=== PATIENT | male | born 1995 | race Caucasian/White ===

== ENCOUNTER 2019-08-01 16:56 | Inpatient (IN) ==
[2019-08-01 17:33] LABS: Appearance Urine Clear (Clear); Bilirubin Urine Negative (Negative); Blood Urine Negative (Negative); Color Urine Yellow; Glucose Urine UA Negative (Negative); Ketones Urine Negative (Negative); Leukocyte Esterase Urine Negative (Negative); Nitrite Urine Negative (Negative); Protein Urine Negative (Negative); Specific Gravity Urine 1.028 (1.000-1.030); Urobilinogen Urine Negative (Negative); pH Urine 5.5 (4.5-7.5)
[2019-08-01 17:36] LABS: Basophils # (auto) 0.02 K/uL (0-0.2); Basophils % (auto) 0.3 %; Eosinophils # (auto) 0.08 K/uL (0-0.5); Eosinophils % (auto) 1.4 %; Hematocrit (blood only) 44.3 % (42-52); Hemoglobin 15.1 g/dL (14.0-18.0); Immature Granulocytes # (auto) 0.02 K/uL (0.00-0.02); Immature Granulocytes % (auto) 0.3 %; Lymphocytes # (auto) 2.09 K/uL (1.2-3.4); Lymphocytes % (auto) 35.3 %; Mean Corpuscular Hemoglobin 29.2 pg (25-34); Mean Corpuscular Hgb Conc 34.1 g/dL (32-36); Mean Corpuscular Volume 85.7 fL (80-100); Mean Platelet Volume 10.6 fL (7.4-10.4); Monocytes % (auto) 6.8 %; Neutrophils # (auto) 3.31 K/uL (1.4-6.5); Neutrophils % (auto) 55.9 %; Platelet Count 335 K/uL (130-400); RDW Coefficient of Variation 13.8 % (11.5-14.5); Red Blood Count 5.17 M/uL (4.7-6.1); White Blood Count 5.92 K/uL (4.8-10.8)
[2019-08-01 17:55] LABS: Amphetamines+Metham, Urine Neg (Neg); Barbiturates, Urine Neg (Neg); Benzodiazepine, Urine Neg (Neg); Cocaine, Urine Neg (Neg); MDMA (Ecstacy), Urine Neg (Neg); Methadone, Urine Neg (Neg); Opiate, Urine Neg (Neg); Phencyclidine, Urine Neg (Neg)
[2019-08-01 18:02] LABS: Albumin Globulin Ratio 1.2 (0.9-2); Albumin Level 4.5 gm/dl (3.4-5.0); BUN Creatinine Ratio 10.4 (10-20); Bilirubin,Total 0.7 mg/dl (0.2-1); Calcium 9.5 mg/dl (8.5-10.1); Creatinine Clr Calc Pharmacy 111.4 ml/min; Est GFR (African American) 88.1; Globulin 3.7 gm/dl (2.5-4.0); Potassium 3.8 mmol/L (3.5-5.1); Total Protein 8.2 gm/dl (6.4-8.2)
[2019-08-01 18:05] LABS: Acetaminophen < 2 ug/ml (10-30)
[2019-08-01 18:06] LABS: Salicylate < 1.7 mg/dl (2.8-20)
[2019-08-01 18:10] LABS: Thyroid Stimulating Hormone 1.39 uIu/ml (0.300-4.500)
--- NOTE | 2019-08-01 18:27 | Emergency Department Note ---
Entered by Arelis Olmos acting as a scribe for History of Present Illness General Chief complaint: Mental Health Evaluation Stated complaint: DEPRESSION Time Seen by Provider: 08/01/19 17:09 Source: patient Mode of arrival: other (police) Limitations: no limitations History of Present Illness Provider complaint: Depression Onset (ago): week(s) (a few weeks ago) Location: head Radiation: non-radiation Severity: similar to prior episodes Pain Consistency: + other (worsening) Quality: + other (depression) Associated symptoms: + other (Additional symptoms: suicidal ideations, excessive sleep. Denies: abdominal pain); no loss of appetite Treatments prior to arrival: none The patient is a 24 year old white male w/ PMHx depression who presents to the ED w/ CC of worsening depression beginning a few weeks ago. The patient reports that he is a college senior preparing to graduate in the spring. He explains al t he went to therapy during his alis year and pushed through his depression, but he notes that he his depression has worsened since June of this year. He states that his depression has become a daily problem. He adds that his grades have been dropping and that he has been sleeping more. He denies any abdominal pain and loss of appetite. He indicates that he has a plan to shoot himself but currently does not have access to any weapons. He told the case management manager, however, that he plans to go home to [place] next week and has access to guns there. The patient reports that he has tried to hurt himself by cutting his hip as a high school sophomore, but he states that he has not tried cutting himself since. He notes that he is not on any regular medication. He endorses alcohol consumption and marijuana use, but he denies any tobacco use. He recalls that he last smoked marijuana yesterday. Home Medications Home Medications Medication Instructions Recorded Confirmed Type No Known Home Medications 08/01/19 08/01/19 History Allergies Allergy/AdvReac Type Severity Reaction Status Date / Time No Known Allergies Allergy Verified 08/01/19 18:20 Past Med/Surg History Medical History Depression Social History Preferred Language: Belgian current occupational status: student Feels Safe at Home: Yes Smoking Status: Never smoker Hx Alcohol Use: Yes Hx Substance Use: Yes substance use type: marijuana Review of Systems See HPI for pertinent positives & negatives. and A total of 10 systems reviewed and were otherwise negative Physical Exam Vital Signs Vital Signs - 24 hr 08/01/19 17:07 Temperature 36.7 C Temperature Source Oral Pulse Rate 65 Pulse Rhythm Regular Pulse Strength Normal Respiratory Rate 18 Respiratory Effort / Characteristics Non-Labored Spontaneous Respiratory Depth Normal Respiratory Pattern Regular Blood Pressure 129/79 Blood Pressure Mean 95 Blood Pressure Position Sitting Pulse Oximetry 97 Oxygen Delivery Method Room Air Sepsis Action Taken by Nursing No Action Required GENERAL: Well appearing, well nourished, NAD, non-toxic. EYE EXAM: Normal conjunctiva. PERRL, no anisocoria and EOM's grossly intact w/o pain. OROPHARYNX: Moist mucous membranes. Grossly normal dentition. NECK: Supple, no nuchal rigidity, no adenopathy, non-tender. No signs of meningismus. LUNGS: Clear to auscultation. Normal chest wall mechanics. HEART: NSR, no MRG. ABDOMEN: Abdomen soft, non-tender, normo-active bowel sounds, no masses, no rebound or guarding. BACK: No CVA TTP. SKIN: No rashes and no bruising. UPPER EXTREMITIES: Upper extremities are grossly normal. LOWER EXTREMITIES: No pitting edema. No calf pain. NEURO EXAM: A&O x3, cranial nerves II-XII grossly intact, normal speech, moves all 4 extremities on command w/o issue. PSYCH: Depressed mood, positive SI with plan. No AVH. Course Course 1737: The patient was evaluated in room A5, and a complete history and physical examination were performed. 1826: On reevaluation, the patient is resting. He is agreeable to inpatient rehab. The patient will be admitted to [address] [place] [address] for further evaluation. Medical Decision Making Differential Diagnosis Differential diagnosis: Etiologies such as mood disorder, infection, hypoglycemia, electrolyte abnormalities, cardiac sources, intracerebral event, toxicologic, neurologic, as well as others were entertained. Medical Records Attestation: I reviewed the patient's medical records. Home Medications Current Medication List: was personally reviewed by me Laboratory Data Attestation: I reviewed the patient's lab results. Result diagrams: 08/01/19 17:20 08/01/19 17:20 Lab Results 11/08/01/19 08/01/19 Range/Units 17:13 17:13 17:20 WBC 5.92 (4.8-10.8) K/uL RBC 5.17 (4.7-6.1) M/uL Hgb 15.1 (14.0-18.0) g/dL Hct 44.3 (42-52) % MCV 85.7 (80-100) fL MCH 29.2 (25-34) pg MCHC 34.1 (32-36) g/dL RDW Std Deviation 43.0 (36.4-46.3) fL RDW Coeff of Nazario 13.8 (11.5-14.5) % Plt Count 335 (130-400) K/uL MPV 10.6 H (7.4-10.4) fL Immature Gran % (Auto) 0.3 % Neut % (Auto) 55.9 % Lymph % (Auto) 35.3 % [place] % (Auto) 6.8 % Eos % (Auto) 1.4 % Baso % (Auto) 0.3 % Immature Gran # (Auto) 0.02 (0.00-0.02) K/uL Neut # (Auto) 3.31 (1.4-6.5) K/uL Lymph # (Auto) 2.09 (1.2-3.4) K/uL [place] # (Auto) 0.40 (0.11-0.59) K/uL Eos # (Auto) 0.08 (0-0.5) K/uL Baso # (Auto) 0.02 (0-0.2) K/uL Sodium (136-145) mmol/L Potassium (3.5-5.1) mmol/L Chloride (98-107) mmol/L Carbon Dioxide (21-32) mmol/L Anion Gap (3-11) BUN (7-18) mg/dl Creatinine (0.6-1.4) mg/dl Est Cr Clr Drug Dosing ml/min Est GFR ( Amer) Est GFR (Non-Af Amer) BUN/Creatinine Ratio (10-20) Glucose (70-99) mg/dl Calcium (8.5-10.1) mg/dl Total Bilirubin (0.2-1) mg/dl AST (15-37) U/L ALT (12-78) U/L Alkaline Phosphatase (45-117) U/L Total Protein (6.4-8.2) gm/dl Albumin (3.4-5.0) gm/dl Globulin (2.5-4.0) gm/dl Albumin/Globulin Ratio (0.9-2) TSH (0.300-4.500) uIu/ml Urine Color Yellow Urine Appearance Clear (Clear) Urine pH 5.5 (4.5-7.5) Ur Specific [place] 1.028 (1.000-1.030) Urine Protein Negative (Negative) Urine Glucose (UA) Negative (Negative) Urine Ketones Negative (Negative) Urine Blood Negative (Negative) Urine Nitrite Negative (Negative) Urine Bilirubin Negative (Negative) Urine Urobilinogen Negative (Negative) Ur Leukocyte Esterase Negative (Negative) Salicylates (2.8-20) mg/dl Urine Opiates Screen Neg (Neg) Ur Methadone, Qual Neg (Neg) Acetaminophen (10-30) ug/ml Urine Barbiturates Neg (Neg) Ur Phencyclidine (PCP) Neg (Neg) U Amphetamin/Meth Scrn Neg (Neg) MDMA (Ecstasy) Screen Neg (Neg) U Benzodiazepines Scrn Neg (Neg) Ur Cocaine Metabolite Neg (Neg) U Marijuana (THC) Screen Pos H (Neg) Ethyl Alcohol mg/dL (0-3) mg/dl 08/01/19 08/01/19 08/01/19 Range/Units 17:20 17:20 17:20 WBC (4.8-10.8) K/uL RBC (4.7-6.1) M/uL Hgb (14.0-18.0) g/dL Hct (42-52) % MCV (80-100) fL MCH (25-34) pg MCHC (32-36) g/dL RDW Std Deviation (36.4-46.3) fL RDW Coeff of Nazario (11.5-14.5) % Plt Count (130-400) K/uL MPV (7.4-10.4) fL Immature Gran % (Auto) % Neut % (Auto) % Lymph % (Auto) % [place] % (Auto) % Eos % (Auto) % Baso % (Auto) % Immature Gran # (Auto) (0.00-0.02) K/uL Neut # (Auto) (1.4-6.5) K/uL Lymph # (Auto) (1.2-3.4) K/uL [place] # (Auto) (0.11-0.59) K/uL Eos # (Auto) (0-0.5) K/uL Baso # (Auto) (0-0.2) K/uL Sodium 141 (136-145) mmol/L Potassium 3.8 (3.5-5.1) mmol/L Chloride 108 H (98-107) mmol/L Carbon Dioxide 25 (21-32) mmol/L Anion Gap 8.0 (3-11) BUN 14 (7-18) mg/dl Creatinine 1.32 (0.6-1.4) mg/dl Est Cr Clr Drug Dosing 111.4 ml/min Est GFR ( Amer) 88.1 Est GFR (Non-Af Amer) 76.0 BUN/Creatinine Ratio 10.4 (10-20) Glucose 96 (70-99) mg/dl Calcium 9.5 (8.5-10.1) mg/dl Total Bilirubin 0.7 (0.2-1) mg/dl AST 33 (15-37) U/L ALT 42 (12-78) U/L Alkaline Phosphatase 76 (45-117) U/L Total Protein 8.2 (6.4-8.2) gm/dl Albumin 4.5 (3.4-5.0) gm/dl Globulin 3.7 (2.5-4.0) gm/dl Albumin/Globulin Ratio 1.2 (0.9-2) TSH 1.390 (0.300-4.500) uIu/ml Urine Color Urine Appearance (Clear) Urine pH (4.5-7.5) Ur Specific [place] (1.000-1.030) Urine Protein (Negative) Urine Glucose (UA) (Negative) Urine Ketones (Negative) Urine Blood (Negative) Urine Nitrite (Negative) Urine Bilirubin (Negative) Urine Urobilinogen (Negative) Ur Leukocyte Esterase (Negative) Salicylates < 1.7 L (2.8-20) mg/dl Urine Opiates Screen (Neg) Ur Methadone, Qual (Neg) Acetaminophen < 2 L (10-30) ug/ml Urine Barbiturates (Neg) Ur Phencyclidine (PCP) (Neg) U Amphetamin/Meth Scrn (Neg) MDMA (Ecstasy) Screen (Neg) U Benzodiazepines Scrn (Neg) Ur Cocaine Metabolite (Neg) U Marijuana (THC) Screen (Neg) Ethyl Alcohol mg/dL < 3.0 (0-3) mg/dl Blood Pressure Blood Pressure Findings: Elevated blood pressure Blood Pressure Disposition: further management by hospitalist MDM Narrative The patient is a 24 year old white male w/ PMHx depression who presents to the ED w/ CC of worsening depression beginning a few weeks ago. Patient was seen and evaluated bedside. The patient was complains of persistent worsening depressed thoughts including suicidal ideation plan with plan to shoot himself when he returned to his home state of [place]. The patient states that this is gotten worse ever since he found out that he was unable to secure a job when graduating. Patient was agreeable to inpatient treatment. The patient was medically cleared seen and evaluated by psych case management manager and admitted to 3 S. Impression & Plan Depression, Suicidal ideation, Marijuana use Discharge Plan Visit Data *Final* Discharge Date/Time: 08/01/19 19:08 Chief Complaint: Mental Health Evaluation Stated Complaint: DEPRESSION ED Provider: Aníbal Coates Discharge Problem: Depression, Suicidal ideation, Marijuana use Patient Disposition: Admitted As Inpatient Discharge Instructions Interventions: ED Discharge Assessment Last Done: 08/01/19 19:08 Discharge Problem: Depression Qualifiers: Depression Type: unspecified Qualified Code(s): F32.9 - Major depressive disorder, single episode, unspecified The scribe's documentation has been prepared under my direction and personally reviewed by me in its entirety. I confirm that the note above accurately reflects all work, treatment, procedures, and medical decision making performed by me.
[2019-08-01] MEDS ORDERED: MAGNESIUM HYDROXIDE SUSP 30 ML UDC PO PRN (18:40)
[2019-08-01] MEDS ORDERED: BISMUTH SUBSALICYLATE PER ML OMNICELL CHARGE PO PRN (18:40)
[2019-08-01] MEDS ORDERED: ALUMINUM/MAGNESIUM SUSP 30 ML UDC PO PRN (18:40)
[2019-08-01] MEDS ORDERED: ACETAMINOPHEN 325 MG TAB PO PRN (18:40)
[2019-08-01] MEDS ORDERED: SODIUM CHLORIDE 0.65% NA SOLN 45 ML (OCEAN) PRN (18:40)
[2019-08-02] MEDS: BuPROPion XL 150 MG TABCR PO SCH (13:20)
--- NOTE | 2019-08-02 16:40 | History & Physical ---
Date of Service August 02, 2019 Impression / Recommendations Impression 24 yr old with symptoms consistent with MDD with prior depressive symptoms while in high school that was treated with therapy appts back then. past moth has been with worsening depression after did not get job that was expecting and interpersonal struggles with gf and another peer seeming tied to his depressive symptoms and to his alcohol usage take increasing. was starting to project out by rejected by others as well. was planning suicide attempt by shooting self when goes home to [place] as family has guns. [facility] assessment day of admission referred him to ER to get admitted 08/02 - admitted to [address] [place] [address] on 201 vol admission individual and group inpt therapy social work assessment aftercare referrals for individual psychotherapy and psychiatric medication management family meeting, pt open to phone meeting with parents and also meeting with gf q15 minute safety checks for SI milieu therapy Inventory Assets Strengths: insightful, seeking help, making changes to housing to assist in how doing Needs: pulling away from alcohol as a self medicating attempt, psychotherapy and medication management services Risk Factors Assessment Male: Yes : Yes Do You Have Access To A Gun?: Yes (at parents home in [place] although combination lock now changed to prevent) Health Problems: No Mental Health Diagnoses: Yes Previous Attempt: No Previous Psychiatric Hospitalization: No Protective Factors Assessment Employed: No Psychiatric History Identifying Data RALEIGH CUEVAS is a 24-year-old M who currently lives in [place], in a fraternity on campus, has a history of depressive symptoms that has been worsening along and was admitted on 08/01/19 18:37 on a 201 voluntary commitment for SI concerns Chief Complaint "since not getting the job offer I been struggling". History of Present Illness This is [place]'s ([facility]) first psychiatric admission. He was referred to the emergency room after being assessed by caps at [facility] due to his suicidal concerns he had set up Fridays's assessment on Sunday, 28 July after disclosing his depressive concerns with a pair. 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 He was counting on this as his upcoming first job For after he graduates college in January 2020. He shared that this sense of rejection was really hard for him and also not knowing what would come next and feeling way behind in his job search process since he was counting on this to work out as leading him to be quite stressed And depressed. Additionally over the past month or so his drink of alcohol has increased significantly in intensity with him blacking out quite frequently over the past month as he drinks on Fridays and Saturdays. He also shared how in his some of his blackouts he has been emotionally cruel to his girlfriend without him being able to recall details of what he has said and done. He indicated that he thinks he was likely similarly interpersonally appropriate inappropriate with a male peer who recently indicated for him to stay away from him and patient cannot recall what he might have done. Patient indicated that he would sometimes drink on the heavy side in the past but that it would be only sporadically to rarely that he would have a blackout and it would be a much milder process without being told about inappropriate behaviors afterwards. Patient shared how he had used cannabis about weekly in the past but that he had ceased using during the summer break and during the first months of this current semester however he resumed using it in the past month as he was struggling and his depression and anxiety symptoms. He denied any other substance usage nor any misues of medications in his history. He shared how he was planning to move out of the dorm into separate housing for next semester given the extent of alcohol and drug use and the fraternity and his experience of feeling isolated instead of having emotional support while living in the fraternity. He shared how during the past month he has been struggling with motivation interest and engagement and has been struggling in his [employer] functioning. Patient at first had reported that he was doing rather decently prior to the past month but given aspects of the assessment it is also possible milder versions of the symptoms were present prior to a month ago. Patient denies history of hypomanic symptoms or psychotic features he denied's history of OCD or panic disorder. He denies having significant history of anxiety symptoms although until feeling more anxious during the past month as his depressive symptoms have worsened. He reported during the past week or 2 that he started to feel a sense of hopelessness and worthlessness and feeling that others were viewing him negatively and not wanting him around. He was having suicidal ideation with plan to shoot himself with having access to a gun at his parent's house back in [place] in which he was then be going back to for giving break in a week and saw himself as likely to try and kill himself during that break. Of note parents have been made aware of his psychiatric admission and and they have changed the combination code to the gun safe. Patient has prior history of obtaining psychotherapy appointments as a alis in high school which she felt was quite helpful for him. He endorsed history of self-injurious behavior by self cutting about 5 separate times when he was in 10th grade. He denies any history of suicide attempts. He denied having history of physically aggressive behavior or homicidal ideation. He denied any psychotic features. Past Psychiatric History Current Psychiatric Diagnosis: MDD Do You Have Access To A Gun?: Yes (at parents home in [place] although combination lock now changed to prevent) Describe Attempts in the Past: Ideations, no attempts Allergies Allergy/AdvReac Type Severity Reaction Status Date / Time No Known Allergies Allergy Verified 08/01/19 18:20 Home Medications Home Medications Medication Instructions Recorded Confirmed Type No Known Home Medications 08/01/19 08/01/19 History bupropion HCl 150 mg PO QAM #30 tab 08/04/19 Rx Family History Family History of: None Alcohol History Hx of Alcohol Use Over the Past 12 Months: Yes (socially,beer/liquor,weekly,8-10 drinks) AUDIT Total Score: 16 Smoking Use Have You Smoked or Used Tobacco Products in the Last 30 Days: No Smoking Status: Never smoker Substance History Hx of Prescription Med Misuse Over the Past 12 Months: No Hx of Over the Counter Med Misuse Over the Past 12 Months: No Hx of Inhalent Misuse Over the Past 12 Months: No Hx of Organic Substance Use Over the Past 12 Months: Yes (marijuana, yesterday, 6 months ago was last use) Hx of Illegal Substances/Street Drug Use Over Past 12 Months: No Problems as a Result of Past Substance Use: None Identified Personal History Living Arrangements: Home Living Arrangements Comments: Lives in a fraternity house locally and is originally from [place] Highest Grade Completed: Some College Highest Grade Completed Comment: [employer] Senior - Engineering Marital Status: Single Number Of Children: 0 Beliefs That Will Affect Care: None Patient History Medical History (Updated 08/04/19 @ 10:47 by Mounika Gaytan MD) Depression (Acute) Substance abuse Social History Preferred Language: Swedish Communication Ability: Effective Beliefs That Will Affect Care: None current occupational status: student Feels Safe at Home: Yes Smoking Status: Never smoker Hx Alcohol Use: Yes Hx Substance Use: Yes substance use type: marijuana Review of Systems Review of Systems: All systems reviewed & are unremarkable except as noted in HPI & below phsyical exam done in ER reviewed and considered adequate for purpose of this admission Physical Exam Psychiatric: Orientation: alert and oriented x 3 Apperance: appropriately dressed and appropriately groomed Eye Contact: good eye contact Motor Behavior: steady gait and station and no abnormal motor movements Speech: normal rate/rhythm/volume of speech Affect: + depressed affect Mood: + depressed mood Thought Process: goal directed thought process and linear/logical thought process Thought Content: + cognitive distortions and + worthlessness Suicidal Thoughts: denies suicidal plan and denies suicidal intent; + reports suicidal thoughts Homicidal Thoughts: denies homicidal thoughts Estimated Intelligence: + above average estimated intelligence Insight: + fair insight Judgement: + fair judgement Vital Signs (Past 24 Hours): Last Vital Signs Temp 36.5 C 08/02/19 06:00 Pulse 93 H 08/02/19 06:46 Resp 18 08/02/19 06:00 BP 119/62 08/02/19 06:46 Pulse Ox 99 08/01/19 19:30 Results & Data Laboratory Results Laboratory Results - last 24 hr 08/01/19 08/01/19 08/01/19 17:13 17:13 17:13 WBC RBC Hgb Hct MCV MCH MCHC RDW Std Deviation RDW Coeff of Nazario Plt Count MPV Immature Gran % (Auto) Neut % (Auto) Lymph % (Auto) [place] % (Auto) Eos % (Auto) Baso % (Auto) Immature Gran # (Auto) Neut # (Auto) Lymph # (Auto) [place] # (Auto) Eos # (Auto) Baso # (Auto) Sodium Potassium Chloride Carbon Dioxide Anion Gap BUN Creatinine Est Cr Clr Drug Dosing Est GFR ( Amer) Est GFR (Non-Af Amer) BUN/Creatinine Ratio Glucose Calcium Total Bilirubin AST ALT Alkaline Phosphatase Total Protein Albumin Globulin Albumin/Globulin Ratio TSH Urine Color Yellow Urine Appearance Clear Urine pH 5.5 Ur Specific [place] 1.028 Urine Protein Negative Urine Glucose (UA) Negative Urine Ketones Negative Urine Blood Negative Urine Nitrite Negative Urine Bilirubin Negative Urine Urobilinogen Negative Ur Leukocyte Esterase Negative Salicylates Urine Opiates Screen Neg Ur Methadone, Qual Neg Acetaminophen Urine Barbiturates Neg Ur Phencyclidine (PCP) Neg U Amphetamin/Meth Scrn Neg MDMA (Ecstasy) Screen Neg U Benzodiazepines Scrn Neg Ur Cocaine Metabolite Neg U Marijuana (THC) Screen Pos H U Marijuana THC Carboxy Pending Ethyl Alcohol mg/dL 08/01/19 08/01/19 08/01/19 17:20 17:20 17:20 WBC 5.92 RBC 5.17 Hgb 15.1 Hct 44.3 MCV 85.7 MCH 29.2 MCHC 34.1 RDW Std Deviation 43.0 RDW Coeff of Nazario 13.8 Plt Count 335 MPV 10.6 H Immature Gran % (Auto) 0.3 Neut % (Auto) 55.9 Lymph % (Auto) 35.3 [place] % (Auto) 6.8 Eos % (Auto) 1.4 Baso % (Auto) 0.3 Immature Gran # (Auto) 0.02 Neut # (Auto) 3.31 Lymph # (Auto) 2.09 [place] # (Auto) 0.40 Eos # (Auto) 0.08 Baso # (Auto) 0.02 Sodium 141 Potassium 3.8 Chloride 108 H Carbon Dioxide 25 Anion Gap 8.0 BUN 14 Creatinine 1.32 Est Cr Clr Drug Dosing 111.4 Est GFR ( Amer) 88.1 Est GFR (Non-Af Amer) 76.0 BUN/Creatinine Ratio 10.4 Glucose 96 Calcium 9.5 Total Bilirubin 0.7 AST 33 ALT 42 Alkaline Phosphatase 76 Total Protein 8.2 Albumin 4.5 Globulin 3.7 Albumin/Globulin Ratio 1.2 TSH 1.390 Urine Color Urine Appearance Urine pH Ur Specific [place] Urine Protein Urine Glucose (UA) Urine Ketones Urine Blood Urine Nitrite Urine Bilirubin Urine Urobilinogen Ur Leukocyte Esterase Salicylates < 1.7 L Urine Opiates Screen Ur Methadone, Qual Acetaminophen < 2 L Urine Barbiturates Ur Phencyclidine (PCP) U Amphetamin/Meth Scrn MDMA (Ecstasy) Screen U Benzodiazepines Scrn Ur Cocaine Metabolite U Marijuana (THC) Screen U Marijuana THC Carboxy Ethyl Alcohol mg/dL 08/01/19 17:20 WBC RBC Hgb Hct MCV MCH MCHC RDW Std Deviation RDW Coeff of Nazario Plt Count MPV Immature Gran % (Auto) Neut % (Auto) Lymph % (Auto) [place] % (Auto) Eos % (Auto) Baso % (Auto) Immature Gran # (Auto) Neut # (Auto) Lymph # (Auto) [place] # (Auto) Eos # (Auto) Baso # (Auto) Sodium Potassium Chloride Carbon Dioxide Anion Gap BUN Creatinine Est Cr Clr Drug Dosing Est GFR ( Amer) Est GFR (Non-Af Amer) BUN/Creatinine Ratio Glucose Calcium Total Bilirubin AST ALT Alkaline Phosphatase Total Protein Albumin Globulin Albumin/Globulin Ratio TSH Urine Color Urine Appearance Urine pH Ur Specific [place] Urine Protein Urine Glucose (UA) Urine Ketones Urine Blood Urine Nitrite Urine Bilirubin Urine Urobilinogen Ur Leukocyte Esterase Salicylates Urine Opiates Screen Ur Methadone, Qual Acetaminophen Urine Barbiturates Ur Phencyclidine (PCP) U Amphetamin/Meth Scrn MDMA (Ecstasy) Screen U Benzodiazepines Scrn Ur Cocaine Metabolite U Marijuana (THC) Screen U Marijuana THC Carboxy Ethyl Alcohol mg/dL < 3.0 Current Inpatient Medications Current Inpatient Medications: Current Inpatient Medications Acetaminophen (Tylenol) 650 mg PO Q4H PRN PRN Reason: Headache or Minor Fever Stop: 08/31/19 18:39 Al Hydrox/Mg Hydrox/Simethicone (Maalox) 30 ml PO Q4H PRN PRN Reason: GI Upset Stop: 08/31/19 18:39 Bismuth Subsalicylate (Kaopectate) 15 ml PO PRN PRN PRN Reason: Loose Stool Stop: 08/31/19 18:39 Bupropion HCl (Wellbutrin-Xl) 150 mg PO QAM CLAUDY Stop: 09/01/19 12:29 Last Admin: 08/02/19 13:20 Dose: 150 mg Documented by: Hydroxyzine HCl (Vistaril) 50 mg PO HSZ PRN PRN Reason: Insomnia Stop: 08/31/19 18:39 Hydroxyzine HCl (Vistaril) 25 mg PO Q4H PRN PRN Reason: Anxiety Stop: 08/31/19 18:39 Magnesium Hydroxide (Milk Of Magnesia) 30 ml PO DAILY PRN PRN Reason: Constipation Stop: 08/31/19 18:39 Sodium Chloride ([place] Nasal) 1 - 2 sprays NA PRN PRN PRN Reason: Nasal Dryness/Congestion Stop: 08/31/19 18:39
[2019-08-03] MEDS: BuPROPion XL 150 MG TABCR PO SCH (09:05)
--- NOTE | 2019-08-03 17:04 | Psychiatric Progress Note ---
Date of Service August 03, 2019 Impression / Recommendations Impression 08/02 - admitted to [address] [place] [id number] on 201 vol admission individual and group inpt therapy social work assessment aftercare referrals for individual psychotherapy and psychiatric medication management family meeting, pt open to phone meeting with parents and also meeting with gf q15 minute safety checks for SI milieu therapy 08/03 family meeting occurred, gf visited aftercare for alcohol plus mental health outpt therapy referral being placed tomorrow with pt highly interested continue wellbutrin xl unchangeed Inventory Assets Strengths: insightful, seeking help, making changes to housing to assist in how doing Needs: pulling away from alcohol as a self medicating attempt, psychotherapy and medication management services Risk Factors Assessment Male: Yes : Yes Do You Have Access To A Gun?: Yes (at parents home in [place] although combination lock now changed to prevent) Health Problems: No Mental Health Diagnoses: Yes Previous Attempt: No Previous Psychiatric Hospitalization: No Protective Factors Assessment Employed: No Interval History Chief Complaint "feeling better, my family meeting went well". Review of Systems Sleep Information Total Hours of Sleep: 6 Meal Information Percent Meal Consumed - Breakfast: 100 Percent Meal Consumed - Lunch: 100 Percent Meal Consumed - Dinner: 100 Subjective Subjective Patient was seen & assessed and interval progress reviewed with nursing and social services manager. Pt had a family meeting with his parents by phone and went well it went well per social services manager and pt. Pt reviewed his symptoms and the "warning signs" he came up with and the various coping mechanism he is planning to apply and shared those with his parents and also encouraged them to reach out to him by calling him if they have not heard from him and to encourage him to use his coping skills. Similarly he is planning to use them regularly to build up the habit of them He is interested in [facility] combination of alcohol related Counseling and general mental health counseling. his gf visited last evening and that went well. e is feeling less depressed and les negative n his thinking and views his previous symptoms and thoughts as a snowball process of his depression. He is wondering about discharge potentially tomorrow given how doing. 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 denied SI. pt viewing Wellbutrin xl as not having s/e and a likely alleviating factor that he is seeking to continue . pt slept well last night appetite intact Physical Exam Psychiatric Orientation: alert, oriented x 3 and oriented to person Apperance: appropriately dressed, appropriately groomed and appeared stated age Eye Contact: good eye contact Motor Behavior: steady gait and station and no abnormal motor movements Speech: normal rate/rhythm/volume of speech Affect: euthymic affect Mood: no depressed mood and no anxious mood Thought Process: goal directed thought process, linear/logical thought process, clear/coherent thought process and thought association intact Thought Content: reality based without delusions; not paranoid, no hopelessness, no worthlessness, no guilt and no self deprecation Suicidal Thoughts: denies suicidal thoughts Homicidal Thoughts: denies homicidal thoughts Hallucinations: no auditory hallucinations Cognition: recent memory grossly intact, remote memory grossly intact, attention grossly intact and language grossly intact Estimated Intelligence: + above average estimated intelligence Insight: good insight Judgement: good judgement Vital Signs (Past 24 Hours) Last Vital Signs Temp 36.7 C 08/03/19 06:00 Pulse 76 08/03/19 06:27 Resp 17 08/03/19 06:00 BP 112/68 08/03/19 06:27 Pulse Ox 99 08/01/19 19:30 Results & Data Current Inpatient Medications Current Inpatient Medications: Current Inpatient Medications Acetaminophen (Tylenol) 650 mg PO Q4H PRN PRN Reason: Headache or Minor Fever Stop: 08/31/19 18:39 Al Hydrox/Mg Hydrox/Simethicone (Maalox) 30 ml PO Q4H PRN PRN Reason: GI Upset Stop: 08/31/19 18:39 Bismuth Subsalicylate (Kaopectate) 15 ml PO PRN PRN PRN Reason: Loose Stool Stop: 08/31/19 18:39 Bupropion HCl (Wellbutrin-Xl) 150 mg PO QAM CLAUDY Stop: 09/01/19 12:29 Last Admin: 08/03/19 09:05 Dose: 150 mg Documented by: Hydroxyzine HCl (Vistaril) 50 mg PO HSZ PRN PRN Reason: Insomnia Stop: 08/31/19 18:39 Hydroxyzine HCl (Vistaril) 25 mg PO Q4H PRN PRN Reason: Anxiety Stop: 08/31/19 18:39 Magnesium Hydroxide (Milk Of Magnesia) 30 ml PO DAILY PRN PRN Reason: Constipation Stop: 08/31/19 18:39 Sodium Chloride ([place] Nasal) 1 - 2 sprays NA PRN PRN PRN Reason: Nasal Dryness/Congestion Stop: 08/31/19 18:39 Mental Health & Subst Abuse Tx Therapist Name of Therapist: none Middle School [employer] Teacher Name of Middle School Band Teacher: none
[2019-08-04] MEDS: BuPROPion XL 150 MG TABCR PO SCH (08:47)
--- NOTE | 2019-08-04 10:22 | Discharge Summary ---
Date of Service August 04, 2019 History of Present Illness This is Umesh's (Ady) first psychiatric admission. He was referred to the emergency room after being assessed by caps at [facility] due to his suicidal concerns he had set up Fridays's assessment on Sunday, 28 July after disclosing his depressive concerns with a pair. 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 He was counting on this as his upcoming first job For after he graduates college in January 2020. He shared that this sense of rejection was really hard for him and also not knowing what would come next and feeling way behind in his job search process since he was counting on this to work out as leading him to be quite stressed And depressed. Additionally over the past month or so his drink of alcohol has increased significantly in intensity with him blacking out quite frequently over the past month as he drinks on Fridays and Saturdays. He also shared how in his some of his blackouts he has been emotionally cruel to his girlfriend without him being able to recall details of what he has said and done. He indicated that he thinks he was likely similarly interpersonally appropriate inappropriate with a male peer who recently indicated for him to stay away from him and patient cannot recall what he might have done. Patient indicated that he would sometimes drink on the heavy side in the past but that it would be only sporadically to rarely that he would have a blackout and it would be a much milder process without being told about inappropriate behaviors afterwards. Patient shared how he had used cannabis about weekly in the past but that he had ceased using during the summer break and during the first months of this current semester however he resumed using it in the past month as he was struggling and his depression and anxiety symptoms. He denied any other substance usage nor any misues of medications in his history. He shared how he was planning to move out of the dorm into separate housing for next semester given the extent of alcohol and drug use and the fraternity and his experience of feeling isolated instead of having emotional support while living in the fraternity. He shared how during the past month he has been struggling with motivation interest and engagement and has been struggling in his [employer] functioning. Patient at first had reported that he was doing rather decently prior to the past month but given aspects of the assessment it is also possible milder versions of the symptoms were present prior to a month ago. Patient denies history of hypomanic symptoms or psychotic features he denied's history of OCD or panic disorder. He denies having significant history of anxiety symptoms although until feeling more anxious during the past month as his depressive symptoms have worsened. He reported during the past week or 2 that he started to feel a sense of hopelessness and worthlessness and feeling that others were viewing him negatively and not wanting him around. He was having suicidal ideation with plan to shoot himself with having access to a gun at his parent's house back in [place] in which he was then be going back to for Thanksgiving break in a week and saw himself as likely to try and kill himself during that break. Of note parents have been made aware of his psychiatric admission and and they have changed the combination code to the gun safe. Patient has prior history of obtaining psychotherapy appointments as a alis in high school which she felt was quite helpful for him. He endorsed history of self-injurious behavior by self cutting about 5 separate times when he was in 10th grade. He denies any history of suicide attempts. He denied having history of physically aggressive behavior or homicidal ideation. He denied any psychotic features. Physical Exam Psychiatric Orientation: alert and cooperative Apperance: appropriately dressed, appropriately groomed and appeared stated age Eye Contact: good eye contact Motor Behavior: steady gait and station and no abnormal motor movements Speech: normal rate/rhythm/volume of speech mild speech impediment Affect: euthymic affect and mood congruent with affect "good, better." Thought Process: goal directed thought process and linear/logical thought process Thought Content: reality based without delusions Able to identify and correct cognitive distortions Suicidal Thoughts: denies suicidal thoughts Hallucinations: no auditory hallucinations and no visual hallucinations Cognition: recent memory grossly intact, attention grossly intact and language grossly intact Estimated Intelligence: consistent with education level Insight: good insight Judgement: good judgement Vital Signs (Past 24 Hours) Last Vital Signs Temp 36.5 C 08/04/19 06:32 Pulse 84 08/04/19 06:33 Resp 16 08/04/19 06:32 BP 104/66 08/04/19 06:33 Pulse Ox 99 08/01/19 19:30 Principal Diagnosis Major depressive disorder, recurrent, severe without psychosis Psychiatric Data The patient was hospitalized on our unit for 3 days. He was diagnosed with depression and started on bupropion XL, which he tolerated well. He processed the stressor that led to recent mood episode (learning he had not gotten an hr internship he had applied for for next spring). He indicated increased alcohol intake over the past month or so, which led to relationship strain. He stated a desire to cut back on his drinking, and plans to move out of the frat house to a healthier environment. He had a phone meeting with parents and the social sciences lecturer on 08/03/2019, talked about his recent stressors and substance abuse. Parents were supportive and stated they would change the combination to the gun safe so that he would not have access to firearms when visiting them (going there for the upcoming holiday break). He utilized reading and journaling as coping strategies while on the unit, and indicated that they were helpful and he planned to continue with them. He was interested in therapy for mental health and substance abuse treatment and was referred to [facility], as well as for outpatient psychiatric care/medication management. He was sleeping and eating well in the hospital, interacting appropriately with others, and tending to ADLs independently. Day of Discharge Assessment Staff report the patient has been engaged in treatment, attending and participating in groups and therapy. On my assessment, he reports mood is "pretty good," improved from admission. He reports anxiety has improved, and he is "feeling ready to get back out there." He has been practicing relaxation techniques, including deep breathing and visualization, journaling, and reading. He has also been processing cognitive distortions, like "no one cares," and recognizing that he was not thinking accurately. He has been reading the patient workbook and has found it helpful. States he often "wears a mask" so that others don't know what is really going on with him. He is looking forward to continuing to work on these things, and to engaging in outpatient treatment. He denies suicidal thoughts and feels safe leaving the hospital. States "I do want to live, I have a lot I want to do." States he wants to avoid alcohol, as he recognizes his negative emotions "build up and explode" when he is drinking, and he has said hurtful things to people he cares about. He also identifies regular exercise as beneficial for mood, and is looking forward to spending time with his family. He has multiple appropriate questions, including about interactions between his medication and alcohol, ways to utilize journaling, and how long he might need to take medication. Transition of Care Transition Of Care Record: was reviewed with the patient Advance Directives Advance Directives Information Provided: Yes Advance Directives: No Mental Health Advance Directive: No Advance Directives on File: No Living Will: No Power of Rubber Stamp Die Inspector: No Advance Directives Reason:: Declines as Mental Health Visit. Risk Factors Assessment Risk factors were mitigated by admission to the inpatient unit, use of medications to target depression, psychoeducation about his diagnoses and treatment recommendations, education regarding the risks of ongoing alcohol use and recommendations for abstinence or minimization of use, involving him in groups and therapy, working on healthy coping skills and a discharge safety plan, and a family meeting with his parents. Parents confirmed that he would not have access to guns while visiting them over the holidays, and were supportive and encouraging. He is reporting improved mood, denying suicidal thoughts, tending to ADLs independently, and making plans for the future. He is requesting discharge, and is he is no longer at acute risk of harm to himself, can be managed as an outpatient at this time. Male: Yes : Yes Do You Have Access To A Gun?: No (at parents' home in [place] [facility] and he will not have access.) Health Problems: No Mental Health Diagnoses: Yes Previous Attempt: No Family History of Suicide: No Previous Psychiatric Hospitalization: No Hopelessness: No Smoker: No Protective Factors Assessment : No Responsible for Young Children: No Employed: No Stable Relationships: Yes Supportive Family: Yes Tobacco Cessation at Discharge Tobacco Cessation Medication Prescribed at Discharge: Not Applicable/Non-Smoker Total Time Total Time Spent: Greater Than 30 Minutes Total Time Includes: Examination of the patient, Discharge Planning and Medication Reconciliation Discharge Data Lab Results 08/01/19 08/01/19 08/01/19 17:13 17:13 17:13 WBC RBC Hgb Hct MCV MCH MCHC RDW Std Deviation RDW Coeff of Nazario Plt Count MPV Immature Gran % (Auto) Neut % (Auto) Lymph % (Auto) Moody % (Auto) Eos % (Auto) Baso % (Auto) Immature Gran # (Auto) Neut # (Auto) Lymph # (Auto) Moody # (Auto) Eos # (Auto) Baso # (Auto) Sodium Potassium Chloride Carbon Dioxide Anion Gap BUN Creatinine Est Cr Clr Drug Dosing Est GFR ( Amer) Est GFR (Non-Af Amer) BUN/Creatinine Ratio Glucose Calcium Total Bilirubin AST ALT Alkaline Phosphatase Total Protein Albumin Globulin Albumin/Globulin Ratio TSH Urine Color Yellow Urine Appearance Clear Urine pH 5.5 Ur Specific Pickton 1.028 Urine Protein Negative Urine Glucose (UA) Negative Urine Ketones Negative Urine Blood Negative Urine Nitrite Negative Urine Bilirubin Negative Urine Urobilinogen Negative Ur Leukocyte Esterase Negative Salicylates Urine Opiates Screen Neg Ur Methadone, Qual Neg Acetaminophen Urine Barbiturates Neg Ur Phencyclidine (PCP) Neg U Amphetamin/Meth Scrn Neg MDMA (Ecstasy) Screen Neg U Benzodiazepines Scrn Neg Ur Cocaine Metabolite Neg U Marijuana (THC) Screen Pos H U Marijuana THC Carboxy 17 A Ethyl Alcohol mg/dL 08/01/19 08/01/19 08/01/19 17:20 17:20 17:20 WBC 5.92 RBC 5.17 Hgb 15.1 Hct 44.3 MCV 85.7 MCH 29.2 MCHC 34.1 RDW Std Deviation 43.0 RDW Coeff of Nazario 13.8 Plt Count 335 MPV 10.6 H Immature Gran % (Auto) 0.3 Neut % (Auto) 55.9 Lymph % (Auto) 35.3 Moody % (Auto) 6.8 Eos % (Auto) 1.4 Baso % (Auto) 0.3 Immature Gran # (Auto) 0.02 Neut # (Auto) 3.31 Lymph # (Auto) 2.09 Moody # (Auto) 0.40 Eos # (Auto) 0.08 Baso # (Auto) 0.02 Sodium 141 Potassium 3.8 Chloride 108 H Carbon Dioxide 25 Anion Gap 8.0 BUN 14 Creatinine 1.32 Est Cr Clr Drug Dosing 111.4 Est GFR ( Amer) 88.1 Est GFR (Non-Af Amer) 76.0 BUN/Creatinine Ratio 10.4 Glucose 96 Calcium 9.5 Total Bilirubin 0.7 AST 33 ALT 42 Alkaline Phosphatase 76 Total Protein 8.2 Albumin 4.5 Globulin 3.7 Albumin/Globulin Ratio 1.2 TSH 1.390 Urine Color Urine Appearance Urine pH Ur Specific Pickton Urine Protein Urine Glucose (UA) Urine Ketones Urine Blood Urine Nitrite Urine Bilirubin Urine Urobilinogen Ur Leukocyte Esterase Salicylates < 1.7 L Urine Opiates Screen Ur Methadone, Qual Acetaminophen < 2 L Urine Barbiturates Ur Phencyclidine (PCP) U Amphetamin/Meth Scrn MDMA (Ecstasy) Screen U Benzodiazepines Scrn Ur Cocaine Metabolite U Marijuana (THC) Screen U Marijuana THC Carboxy Ethyl Alcohol mg/dL 08/01/19 17:20 WBC RBC Hgb Hct MCV MCH MCHC RDW Std Deviation RDW Coeff of Nazario Plt Count MPV Immature Gran % (Auto) Neut % (Auto) Lymph % (Auto) Moody % (Auto) Eos % (Auto) Baso % (Auto) Immature Gran # (Auto) Neut # (Auto) Lymph # (Auto) Moody # (Auto) Eos # (Auto) Baso # (Auto) Sodium Potassium Chloride Carbon Dioxide Anion Gap BUN Creatinine Est Cr Clr Drug Dosing Est GFR ( Amer) Est GFR (Non-Af Amer) BUN/Creatinine Ratio Glucose Calcium Total Bilirubin AST ALT Alkaline Phosphatase Total Protein Albumin Globulin Albumin/Globulin Ratio TSH Urine Color Urine Appearance Urine pH Ur Specific Pickton Urine Protein Urine Glucose (UA) Urine Ketones Urine Blood Urine Nitrite Urine Bilirubin Urine Urobilinogen Ur Leukocyte Esterase Salicylates Urine Opiates Screen Ur Methadone, Qual Acetaminophen Urine Barbiturates Ur Phencyclidine (PCP) U Amphetamin/Meth Scrn MDMA (Ecstasy) Screen U Benzodiazepines Scrn Ur Cocaine Metabolite U Marijuana (THC) Screen U Marijuana THC Carboxy Ethyl Alcohol mg/dL < 3.0 Hospital Course (1) Depression: -Patient was started on bupropion XL 150 mg daily on admission, and is tolerating it well. Prescription issued for 30-day supply. -Family meeting held with parents 08/03/2019; they confirmed that guns are locked and he will not have access while visiting them. -Patient participated in groups and therapy, work on healthy coping skills, and completed a discharge safety plan. -Patient has been referred to [facility] for medication management, and [facility] for therapy. (2) Substance abuse: Brief intervention was offered and accepted Intervention was greater than 5 min in length. Brief interventions include: 1. Assess Readiness to Quit, 2. Advise: Help Patient to Reduce or Abstain from Alcohol, 3. Agree: Set Specific, Feasible Goals, 4. Assist: Anticipate barriers, Problem-Solving Solutions. Social work to 5. Arrange: Referrals to appropriate treatment. Summary of intervention: The patient is in contemplation stage with regards to transtheoretical model of change. The patient is advised to decrease alcohol and cannabis consumption due to depressant effects and risk of interactions with prescription medications. The patient agreed to cut back on his use and avoid binge drinking, and will be provided with recovery materials to continue to education self on how to cope with their condition without drinking. -Patient is making plans to move out of his frat house and in with friends where there will be less rampant substance abuse. -Patient advised of risks of worsening psychiatric symptoms with continued substance abuse, and potential for drug-drug interactions. -Referred to [facility] for outpatient treatment. Mental Health & Subst Abuse Tx Psychiatrist Name of Psychiatrist: Paige Psychiatrist's Time of Appointment with Psychiatrist: Referral sent, please call to follow up and schedule Psychiatric Appointment Comment: [address], [place] Therapist Name of Therapist: Osbaldo Beckett Therapist's Date of Therapist Appointment: 08/06/19 Time of Therapist Appointment: 9:30 a.m. Therapy Appointment Comment: [address] [facility], [address], [place], [place] Brake Lining Maker Name of Brake Lining Maker: Magdaleno Nickerson and Julia Sterling Phone Number for Brake Lining Maker: [phone] Date of Appointment with Brake Lining Maker: 08/05/19 Time of Appointment with Brake Lining Maker: 10:15 a.m. Case Management Appointment Comment: [address] [facility] Post Discharge Appointments Primary Care Physician Name Of Family Doctor: [facility] Primary Care Time of Appointment with PCP: Follow up as needed Provider Appointment Comment: [place] [address] Smoking Cessation Counseling Tobacco Cessation Medication Prescribed at Discharge: Not Applicable/Non-Smoker Contact Information Discharge Discharge Address: [address] [place] [id number] Discharge Plan Discharge Items Patient Disposition: Home - Self-Care Reason For Visit: DEPRESSION Discharge Diagnosis: Major depression, single episode, severe without psychosis Activity: Per Instructions section Non-emergency contact: Psychiatrist and Therapist Call non-emergency contact if: you have any medication questions Follow-up/Referrals: PCP,NO [Primary Care Provider] - Diet: Regular Addtl Attending Provider Instructions: SPECIAL CARE INSTRUCTIONS: 1. Follow through with your scheduled aftercare appointments. If unable to keep an appointment, please call to reschedule. 2. Take your medication only as prescribed. Medication should not be changed or stopped without the approval of your doctor. In the event of worsening symptoms or concerns about side effects, contact your doctor immediately. 3. Utilize new healthy coping skills, anger management skills, and stress management skills learned during your hospitalization. Journal feelings and process them with a support person. Identify stressors or situations that may result in relapse, deterioration or inappropriate behaviors and develop a plan to deal with those issues. 4. If your coping skills are ineffective and you are in crisis, contact your outpatient providers for direction. If unable to reach your providers, please call the CAN HELP LINE AT or go to the closest Emergency Room. 5. Avoid alcohol and un-prescribed drugs. 6. You have been provided with the Mental Health Advance Directives Pamphlet for your review. AFTERCARE APPOINTMENTS: * Please call your insurance company prior to your scheduled appointment to confirm your aftercare providers are covered. Take your insurance information to your appointments. WHO TO CALL AND WHEN: Medical Emergencies: For questions or emergencies related to your hospital stay, please contact the Inpatient Behavioral Health Unit at [phone]. A vocational trainer is on-call 09/04 for the Behavioral Health Unit for emergencies At any time you feel your situation is an emergency, you may also call 911 immediately. Your Doctors Instructions noted above were prepared by provider Mounika Gaytan MD. Pending Studies at Discharge: No Stand-Alone Forms: My [facility] DianDian, Smoking Cessation, Suicide Prevention Resources Medications and DC Order Prescriptions: New bupropion HCl 150 mg Tablet Extended Release 24 Hr 150 mg PO QAM Qty: 30 RF: 0 No Action No Known Home Medications RF: 0 Discharge Orders: Discharge Order (Routine); Ordered 08/04/19 Ordered By: Mounika Gaytan Admission Data Admit Date/Time: 08/01/19 18:37 Attending Provider: Lam Manzo I. Admit Provider: Turk,Lam I. Primary Care Provider: PCP,NO Other Interventions: PSY Interdisciplinary Discharge Planning Last Done: 08/04/19 09:58 Coding Level of Care Code 84295 D/C day mgmt > 30 min Diagnoses Depression F32.9 Depression Type: unspecified Substance abuse F19.10
== END 2019-08-04 14:01 | disposition home or self-care (01) | DRG 885 ==
LOC: ED 16:56 → 3S 18:37